=== PATIENT | male | born 1995 ===

== ENCOUNTER 2020-01-05 13:53 | Emergency (ER) | payer BC ==
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
[2020-01-05] MEDS ORDERED: Amoxicillin/Clavulanate K 875-125 MG Tab PO ONE (16:22)
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
== END 2020-01-05 16:58 | disposition home or self-care (01) ==
LOC: DL.ED 13:53
DX: S02.40EA Zygomatic fracture, right side, initial encounter for closed fracture (principal); S02.31XA Fracture of orbital floor, right side, initial encounter for closed fracture; Z87.891 Personal history of nicotine dependence; X58.XXXA Exposure to other specified factors, initial encounter
CPT/HCPCS: 70486; 99284; A9270